=== PATIENT | male | born 1940 | race Hispanic/Latino ===

== ENCOUNTER 2017-11-14 20:52 | Observation (INO) | payer MEDICARE, BC ==
[2017-11-14 20:58] VITALS: BMI 31.2
--- NOTE | 2017-11-14 21:27 | ED PDOC ---
Arrival/HPI - General Chief Complaint: Seizure Time Seen by Provider: 11/14/17 20:59 Historian: Patient, Spouse - History of Present Illness Narrative History of Present Illness (Text): 11/14/17 21:21 77 year old male on Coumadin, whose past medical history includes prostate cancer, diabetes, and A-fib, presents for evaluation of hypoglycemia and seizure. Patient's states he was taking a shower, and came out to tell her he felt his sugar was low. states patient then went in the room to check his sugar, and she heard shaking. states she then came in to see him with his head back and seeming to have a seizure. Patient informs of having nausea right now. Patient denies any fevers, chills, chest pain, shortness of breath, cough, abdominal pain, vomiting, diarrhea, back pain, neck pain, urinary/bowel changes, or any other complaint. Time/Duration: Prior to Arrival Context: Home Past Medical History - Provider Review Nursing Documentation Reviewed: Yes - Cardiac Hx Hypertension: Yes Other/Comment: Englarged Left Ventricle - Pulmonary Hx Chronic Obstructive Pulmonary Disease (COPD): Yes Hx Emphysema: Yes - Neurological Hx Seizures: Yes - Endocrine/Metabolic Hx Diabetes Mellitus Type 2: Yes - Genitourinary/Gynecological Other/Comment: Hematoma in [place] - Psychiatric Hx Substance Use: No - Surgical History Other/Comment: Hernia Repair 30years ago. Family/Social History - Physician Review Nursing Documentation Reviewed: Yes Family/Social History: No Known Family HX Smoking Status: Never Smoked Hx Alcohol Use: No Hx Substance Use: No Allergies/Home Meds Allergies/Adverse Reactions: Allergies No Known Allergies Allergy (Verified 11/14/17 20:58) Home Medications: Home Meds Medication Instructions Recorded Confirmed Atropine/Diphenoxylate [Lonox 1 tab PO DAILY PRN 11/14/17 11/14/17 0.025 MG-2.5 MG] Budesonide/Formoterol Fumarate 2 spray IH DAILY 11/14/17 11/14/17 [Symbicort] Esomeprazole Magnesium [Nexium] 40 mg PO DAILY 11/14/17 11/14/17 GlipiZIDE [Glucotrol] 5 mg PO BID 11/14/17 11/14/17 Meclizine [Antivert] 25 mg PO Q6 PRN 11/14/17 11/14/17 Oxycodone HCl/Acetaminophen 1 each PO Q6 PRN 11/14/17 11/14/17 [Percocet 7.5-325 mg Tablet] Quinine Sulfate [Qualaquin] 324 mg PO DAILY 11/14/17 11/14/17 Sertraline [Zoloft] 50 mg PO QPM 11/14/17 11/14/17 Tamsulosin [Flomax] 0.4 mg PO DAILY 11/14/17 11/14/17 Terazosin [Hytrin] 2 mg PO DAILY 11/14/17 11/14/17 Tiotropium [Spiriva] 18 mcg IH DAILY 11/14/17 11/14/17 Warfarin [Coumadin] 3 mg PO DAILY 11/14/17 11/14/17 Zolpidem [Ambien] 10 mg PO HS PRN 11/14/17 11/14/17 metFORMIN [glucOPHAGE] 500 mg PO BID 11/14/17 11/14/17 Review of Systems - Physician Review All systems were reviewed & negative as marked: Yes - Review of Systems Constitutional: absent: Fevers, Night Sweats Respiratory: absent: SOB, Cough Cardiovascular: absent: Chest Pain Gastrointestinal: Nausea. absent: Abdominal Pain, Diarrhea, Vomiting Genitourinary Male: absent: Urinary Output Changes Musculoskeletal: absent: Back Pain, Neck Pain Physical Exam Vital Signs Reviewed: Yes Vital Signs Temp Pulse Resp BP Pulse Ox 11/14/17 21:00 98 F 98 H 20 146/80 97 Temperature: Afebrile Blood Pressure: Normal Pulse: Regular Respiratory Rate: Normal Appearance: Positive for: Well-Appearing, Non-Toxic, Comfortable Pain Distress: None Mental Status: Positive for: Alert and Oriented X 3 Finger Stick Blood Glucose: 133 - Systems Exam Head: Present: Atraumatic, Normocephalic Pupils: Present: PERRL Extroacular Muscles: Present: EOMI Conjunctiva: Present: Normal Mouth: Present: Moist Mucous Membranes Neck: Present: Normal Range of Motion Respiratory/Chest: Present: Clear to Auscultation, Good Air Exchange. No: Respiratory Distress, Accessory Muscle Use Cardiovascular: Present: Regular Rate and Rhythm, Normal S1, S2. No: Murmurs Abdomen: No: Tenderness, Distention, Peritoneal Signs Back: Present: Normal Inspection Upper Extremity: Present: Normal Inspection. No: Cyanosis, Edema Lower Extremity: Present: Normal Inspection. No: Edema Neurological: Present: GCS=15, CN II-XII Intact, Speech Normal Skin: Present: Warm, Dry, Normal Color. No: Rashes Psychiatric: Present: Alert, Oriented x 3, Normal Insight, Normal Concentration Medical Decision Making ED Course and Treatment: 11/14/17 21:28 Impression: 77 year old male presents for evaluation status post hypoglycemia and possible seizure Plan: -- CT Head -- EKG -- Labs -- Chest X-ray -- Zofran -- Urinalysis -- Reassess and disposition Prior Visits: Notes and results from previous visits were reviewed. Progress Notes:keara d/w dr [place] pt will go to tele obs 11/16/17 05:37 - EKG Interpretation EKG Interpretation (Text): 11/14/17 22:38 atial fib rate [address] changes - Scribe Statement The provider has reviewed the documentation as recorded by the Briseidaibdarlene Dalton Provider Scribe Attestation: All medical record entries made by the Scribe were at my direction and personally dictated by me. I have reviewed the chart and agree that the record accurately reflects my personal performance of the history, physical exam, medical decision making, and the department course for this patient. I have also personally directed, reviewed, and agree with the discharge instructions and disposition. Disposition/Present on Arrival - Present on Arrival Any Indicators Present on Arrival: No History of DVT/PE: No History of Uncontrolled Diabetes: Yes Urinary Catheter: No History of Decub. Ulcer: No History Surgical Site Infection Following: None - Disposition Have Diagnosis and Disposition been Completed?: Yes Diagnosis: Hypoglycemia Disposition: HOSPITALIZED Disposition Time: 22:40 Condition: FAIR
[2017-11-14 21:38] LABS: BASO # 0.04 K/mm3 (0.0-2.0); BASO % 0.3 % (0.0-3.0); EOS # 0.4 (0.0-0.7); GRAN # 5.97 (1.4-6.5); GRAN % 45.3 % (50.0-68.0); HEMOGLOBIN 13.8 g/dL (14.0-18.0); LYMPH # 5.7 (1.2-3.4); LYMPH % 43.4 % (22.0-35.0); MEAN CELL VOLUME 91.8 fl (80.0-105.0); MEAN CORPUSCULAR HEMOGLOBIN 31.6 pg (25.0-35.0); MEAN CORPUSCULAR HGB CONC 34.4 g/dl (31.0-37.0); MEAN PLATELET VOLUME 11.5 fl (7.0-11.0); MONO # 1.1 (0.1-0.6); RBC 4.37 10^6/uL (3.5-6.1); RED CELL DISTRIBUTION WIDTH 14.1 % (11.5-14.5); WHITE BLOOD COUNT 13.2 10^3/ul (4.5-11.0)
[2017-11-14 21:52] LABS: INR 2.25; PARTIAL THROMBOPLASTIN TIME 32.7 Seconds (25.1-36.5); PROTHROMBIN TIME 26.1 SECONDS (9.4-12.5)
[2017-11-14 22:00] LABS: ALB/GLOB RATIO 1.5 (1.1-1.8); ALT/SGPT 20 U/L (7-56); AST/SGOT 28 U/L (17-59); BLOOD UREA NITROGEN 20 mg/dL (7-21); CALCIUM 8.6 mg/dL (8.4-10.5); GFR NON-AFRICAN AMERICAN 49; TROPONIN I < 0.01 ng/mL
[2017-11-14] MEDS ORDERED: Dextrose 5%/0.45% NS 1,000 ML IV SCH (22:45)
[2017-11-14] MEDS ORDERED: Oxycodone/Acetaminophen 5/325 mg Tab PO STA (23:54)
[2017-11-15] MEDS ORDERED: Magnesium Oxide 400 mg Tab UD PO STA (00:30)
[2017-11-15 04:24] LABS: URINE BILIRUBIN NEGATIVE (NEGATIVE); URINE BLOOD TRACE-INTACT (NEGATIVE); URINE GLUCOSE (UA) NEGATIVE (NEGATIVE); URINE LEUKOCYTE ESTERASE NEGATIVE Leu/uL (NEGATIVE); URINE PROTEIN NEGATIVE mg/dL (<30 mg/dL); URINE UROBILINOGEN 0.2 E.U./dL (<1 E.U./dL)
[2017-11-15 04:47] LABS: URINE APPEARANCE CLEAR (CLEAR); URINE COLOR YELLOW (YELLOW)
[2017-11-15 04:49] LABS: OPIATES, UR NEGATIVE (NEGATIVE); PHENCYCLIDINE, UR NEGATIVE (NEGATIVE)
[2017-11-15 04:56] LABS: BARBITURATES, UR NEGATIVE (NEGATIVE); BENZODIAZEPINES, UR NEGATIVE (NEGATIVE)
[2017-11-15 04:57] LABS: URINE EPITHELIAL CELLS 0 - 2 /hpf (0-5); URINE RBC 0 - 2 /hpf (0-2)
[2017-11-15 04:58] LABS: URINE BACTERIA RARE (NEG)
[2017-11-15] MEDS: Insulin Reg-LOW-Coverage SC SCH ×4 (07:30→21:31)
[2017-11-15] MEDS ORDERED: Potassium Chloride 20 mEq ER Tab PO ONE (08:28)
[2017-11-15] MEDS ORDERED: Magnesium Sulfate 2 gm/50 ml 2 GM/50 ML BAG IVPB ONE (08:28)
--- NOTE | 2017-11-15 08:30 | CT ---
Date of service: 11/14/2017 PROCEDURE: CT HEAD WITHOUT CONTRAST. HISTORY: ams COMPARISON: None available. TECHNIQUE: Axial computed tomography images were obtained through the head/brain without intravenous contrast. Supplemental Coronal and Sagittal projections created and reviewed. Radiation dose: Total exam DLP = 1101.00 mGy-cm. This CT exam was performed using one or more of the following dose reduction techniques: Automated exposure control, adjustment of the mA and/or kV according to patient size, and/or use of iterative reconstruction technique. FINDINGS: HEMORRHAGE: No intracranial hemorrhage. BRAIN: No mass effect or edema. No atrophy or chronic microvascular ischemic changes. VENTRICLES: Unremarkable. No hydrocephalus. CALVARIUM: Unremarkable. PARANASAL SINUSES: Chronic sinusitis primarily affecting ethmoid and sphenoid air cells. Similar less pronounced changes identified right maxillary sinus. MASTOID AIR CELLS: Unremarkable as visualized. No inflammatory changes. OTHER FINDINGS: None. IMPRESSION: No acute intracranial abnormalities. No significant findings to account for the clinical presentation. Concordant results (preliminary interpretation) provided by [employer]. Procedure Completed: 21:53 Preliminary Report: Dictated and Authenticated: 22:06. Final Interpretation: 08:27. November 15, 2017
--- NOTE | 2017-11-15 08:44 | RAD ---
Date of service: 11/14/2017 PROCEDURE: CHEST RADIOGRAPH, 1 VIEW HISTORY: ams COMPARISON: 07/26/2017 FINDINGS: LUNGS: Clear. PLEURA: No pneumothorax or pleural fluid seen. CARDIOVASCULAR: No radiographic findings to suggest acute or significant cardiovascular disease. OSSEOUS STRUCTURES: No significant abnormalities. VISUALIZED UPPER ABDOMEN: Normal. OTHER FINDINGS: None. IMPRESSION: No active disease. No acute/significant interval changes.
[2017-11-15] MEDS ORDERED: Sodium Chloride 0.9% 1,000 ML IV SCH (09:00)
--- NOTE | 2017-11-15 09:13 | CARD ---
APPROVED REPORT Date of service: 11/14/2017 EKG Measurement Heart [id number] <Conclusion> Atrial fibrillation with rapid ventricular response ST-T Changes. Poor R Progression V1-V3. Nonspecific ST and T wave abnormality, probably digitalis effect Abnormal ECG
[2017-11-15] MEDS: Magnesium Oxide 400 mg Tab UD PO SCH (17:31)
[2017-11-15] MEDS: Potassium & Sodium Phosphate PO SCH (17:33)
[2017-11-15] MEDS ORDERED: Potassium & Sodium Phosphate PO SCH (18:00)
--- NOTE | 2017-11-15 19:06 | HP ---
HISTORY OF PRESENT ILLNESS: The patient is a 77-year-old man with a past medical history of AFib and type 2 diabetes mellitus who presented s/p syncopal episode. The patient states that he was in his usual state of health until the day of presentation to the ED when he was taking a shower and began to experience symptoms of hypoglycemia. The patient has a longstanding history of diabetes and is familiar with symptoms and management of hypoglycemia. He states that while he was showering, he became tremulous and diaphoretic as well as lightheaded. He reports that his appetite has not been great recently, to which he attributes his hypoglycemia. The patient was going to check his blood glucose on his home Glucometer, when he suddenly syncopized. His reportedly came into the room and noticed him on the floor shaking and immediately called EMS. The patient was subsequently brought to [facility] ED for further evaluation. Of note, there was no bowel or bladder incontinence, tongue biting, foaming at the mouth, or postictal confusion. On arrival to the ED, he was found to be afebrile and hemodynamically stable and a fingerstick glucose on admission was 113. This morning, the patient states he feels great, offers no complaints, and wants to go home. PAST MEDICAL HISTORY: As per HPI, also hypertension, GERD, lumbosacral radiculopathy, history of adenocarcinoma prostate s/p resection and and depression. PAST SURGICAL HISTORY: History of surgical resection of adenocarcinoma of the prostate. ALLERGIES: NKDA. MEDICATIONS: Glipizide 5 mg p.o. b.i.d., Metformin 500 mg p.o. b.i.d., Terazosin 2 mg p.o. daily, Coumadin 4 mg p.o. daily, Lisinopril 20 mg p.o. daily, Zoloft 50 mg p.o. at bedtime, and Percocet 7.5/325 mg p.o. every 8 hours as needed for pain. FAMILY HISTORY: Noncontributory. SOCIAL HISTORY: The patient denies any toxic habits. REVIEW OF SYSTEMS: A 12-point review of systems is negative except as per HPI. PHYSICAL EXAMINATION: VITAL SIGNS: Temperature 98.5, pulse 72, blood pressure 130/86, respiratory rate 20, and oxygen saturation 100% on 2 L nasal cannula. GENERAL: Elderly man appearing his stated age, in no apparent distress. HEENT: PERRL, EOMI. No scleral icterus. No conjunctival pallor. NECK: No JVD, no bruits. LUNGS: Decreased breath sounds at the bases. CARDIOVASCULAR: Irregularly irregular. Normal S1, S2. ABDOMEN: Normoactive bowel sounds. Soft, nontender, and nondistended. EXTREMITIES: No edema. NEUROLOGIC: Awake, alert, and oriented x 3. No focal motor deficits. SKIN: Multiple ecchymoses to his upper extremities. LABORATORY DATA: WBC 13.2 with 45% neutrophils, hemoglobin 14, hematocrit 40, and platelets 114. Sodium 138, potassium 2.3, chloride 97, bicarb 23. BUN 20, creatinine 1.4, glucose 132. Phosphorus 1.7, magnesium 1.4. INR 2.25. Urinalysis negative. Urine toxicology negative. IMAGING STUDIES: 1. Chest x-ray demonstrates no acute pathology. 2. CT of the head without contrast demonstrates no acute pathology. ASSESSMENT: The patient is a 77-year-old man with multiple medical comorbidities including AFib and type 2 diabetes mellitus who presented s/p syncopal episode and was admitted for management of symptomatic hypoglycemia PLAN: 1. Syncope, etiology likely secondary to hypoglycemic episode. Neuroimaging reviewed and negative for any acute pathology. The patient reports resolution of his symptoms since treating his hypoglycemia in the ED. We will continue to monitor fingersticks before every meals and every bedtime. 2. AFib. The patient remains rate-controlled. We will resume his home medications. 3. GERD. Resume Protonix 40 mg p.o. daily. 4. Hypertension. Blood pressure controlled. Resume Lisinopril 20 mg p.o. daily. 5. Type 2 diabetes mellitus. We will start medium-dose insulin sliding scale and resume Metformin. 6. Depression. Resume Zoloft 50 mg p.o. daily. 7. Lumbosacral radiculopathy. The patient to resume Percocet upon discharge. 8. History of prostate cancer s/p resection. 9. Prophylaxis. GI prophylaxis not indicated as the patient is eating. DVT prophylaxis not indicated as the patient is ambulatory. CODE STATUS: Full code. Jewel Padkowsky, MD [facility] # [id number] EZEQUIEL
[2017-11-16 01:33] VITALS: O2SAT 94
[2017-11-16] MEDS ORDERED: Pantoprazole 40 mg EC Tab PO SCH (06:00)
[2017-11-16 06:42] LABS: INR 2.2; PROTHROMBIN TIME 25.7 SECONDS (9.4-12.5)
[2017-11-16 06:51] LABS: MEAN CELL VOLUME 92.6 fl (80.0-105.0); MEAN CORPUSCULAR HEMOGLOBIN 30.9 pg (25.0-35.0); MEAN CORPUSCULAR HGB CONC 33.3 g/dl (31.0-37.0); MEAN PLATELET VOLUME 11.3 fl (7.0-11.0); RBC 4.21 10^6/uL (3.5-6.1); RED CELL DISTRIBUTION WIDTH 14.3 % (11.5-14.5)
[2017-11-16 07:25] LABS: FREE T4 0.97 ng/dL (0.78-2.19)
[2017-11-16 07:28] LABS: ALB/GLOB RATIO 1.4 (1.1-1.8); ALBUMIN 3.3 g/dL (3.0-4.8); ALT/SGPT 32 U/L (7-56); AST/SGOT 39 U/L (17-59); BLOOD UREA NITROGEN 15 mg/dL (7-21); CALCIUM 8.2 mg/dL (8.4-10.5); GFR NON-AFRICAN AMERICAN > 60
[2017-11-16] MEDS ORDERED: Potassium Chloride 20 mEq ER Tab PO ONE (07:46)
[2017-11-16] MEDS: Insulin Reg-LOW-Coverage SC SCH ×2 (08:12→11:36)
--- NOTE | 2017-11-16 08:41 | PN ---
SUBJECTIVE: The patient was seen and examined at bedside on the telemetry ivey. No acute events overnight. He remains afebrile, hemodynamically stable and with no further recurrence of his near syncopal symptoms. This morning he feels great and wants to go home. OBJECTIVE VITAL SIGNS: Temperature 99.4, pulse 80, blood pressure 146/91, respiratory rate 20, oxygen saturation 94% on room air. GENERAL: No apparent distress. HEENT: PERRL, EOMI. No scleral icterus. No conjunctival pallor. NECK: No JVD. LUNGS: Decreased breath sounds at the bases. CARDIOVASCULAR: Irregularly irregular. Normal S1 and S2. ABDOMEN: Normoactive bowel sounds. Soft, nontender, nondistended. EXTREMITIES: No edema. NEUROLOGIC: Awake, alert and oriented x 3. No focal motor deficits. SKIN: Multiple ecchymoses to his upper extremities. LABORATORY DATA: CBC reviewed and unremarkable. CMP reviewed and unremarkable with the exception of potassium of 2.9. ASSESSMENT: The patient is a 77-year-old man with multiple medical comorbidities including AFib and type 2 diabetes mellitus who presented s/p syncopal episode and was admitted for management of symptomatic hypoglycemia. PLAN: 1. Syncope, etiology likely secondary to hypoglycemic episode, resolved. The patient was advised to monitor his fingersticks as directed and to eat three meals a day. He was also again counseled on signs and symptoms of hypoglycemia and appropriate management. 2. Atrial fibrillation. The patient remains rate-controlled. Continue home medications. 3. GERD. Continue Protonix 40 mg p.o. daily. 4. Hypertension. Continue Lisinopril 20 mg p.o. daily. 5. Type 2 diabetes mellitus. Continue medium-dose insulin sliding scale and Metformin. The patient was advised to discontinue his glipizide. 6. Depression. Continue Zoloft 50 mg p.o. daily. 7. Lumbosacral radiculopathy. The patient to resume Percocet upon discharge. 8. History of prostate cancer s/p resection. 9. Prophylaxis. GI prophylaxis not indicated as the patient is eating. DVT prophylaxis not indicated as the patient is ambulatory. CODE STATUS: Full code. Jewel Lomas MD [facility] # [id number]
[2017-11-16] MEDS: Magnesium Oxide 400 mg Tab UD PO SCH (09:14)
[2017-11-16] MEDS: Potassium & Sodium Phosphate PO SCH (09:14)
[2017-11-16 12:03] VITALS: BP 163/98; PULSE 80; RESP 21; TEMP 98.7
== END 2017-11-16 15:30 | disposition home or self-care (01) ==
LOC: ED 20:52 → ERH 22:38 → 2RNO 11-15 00:50
PROVIDERS: ADMIT Internal Medicine; ATTEND Internal Medicine
DX: E11.649 Type 2 diabetes mellitus with hypoglycemia without coma (principal); I10 Essential (primary) hypertension; I48.91 Unspecified atrial fibrillation; J43.9 Emphysema, unspecified; K21.9 Gastro-esophageal reflux disease without esophagitis; Z85.46 Personal history of malignant neoplasm of prostate; M54.17 Radiculopathy, lumbosacral region; F32.9 Major depressive disorder, single episode, unspecified; Z79.01 Long term (current) use of anticoagulants